=== PATIENT | male | born 1970 | race Two or more races ===

== ENCOUNTER 2019-08-18 19:00 | Emergency (ER) | payer BC ==
[2019-08-18 19:06] VITALS: BP 138/84; PULSE 88; TEMP 99.7; BMI 25.1
[2019-08-18] MEDS ORDERED: HYDROmorphone HCL CARPU-JECT 1 MG/1 ML DISP.SYRIN IM ONE (21:20)
[2019-08-18] MEDS ORDERED: HYDROmorphone HCL CARPU-JECT 1 MG/1 ML DISP.SYRIN ONE (21:35)
--- NOTE | 2019-08-19 01:15 | PDOC ---
Documentation entered by Maral Flood SCRIBE, acting as scribe for Felecia Gutierrez MD. Felecia Gutierrez MD: This documentation has been prepared by the Remigio contreras Mackenzie, SCRIBE, under my direction and personally reviewed by me in its entirety. I confirm that the documentation accurately reflects all work , treatment, procedures, and medical decision making performed by me. History of Present Illness - General Chief Complaint: Pain, Acute Stated Complaint: right ankle/foot pain History Source: Patient Exam Limitations: No Limitations - History of Present Illness Initial Comments: The patient is a 48 year old male, with a significant PMH of anxiety who presents to the emergency department after rolling his right ankle. Pt states he was at work approximately 5 hours ago when he rolled his right ankle and heard a pop. Pt notes icing the ankle for an hour [employer] and came in today because it is still swollen and he cannot bear any weight on it. The patient denies chest pain, shortness of breath, headache and dizziness. Denies fever, chills, vomiting, diarrhea and constipation. Denies dysuria, frequency, urgency and hematuria. Allergies: Succinylcholine Past surgical history: Neck surgery where pins were placed (not specified) PCP: Dr. Piña 08/18/19 20:47 Past History - Past Medical History Allergies/Adverse Reactions: Allergies Allergy/AdvReac Type Severity Reaction Status Date / Time succinylcholine Allergy Verified 08/18/19 19:05 Home Medications: Ambulatory Orders Oxycodone HCl 10 mg PO PRN 06/25/14 Clonazepam [Klonopin] 1 mg PO ASDIR 08/18/19 COPD: No Other medical history: neck and back pain - Psycho Social/Smoking Cessation Hx Smoking History: Never smoked Have you smoked in the past 12 months: No Hx Alcohol Use: No Drug/Substance Use Hx: No Review of Systems - Review of Systems Able to Perform ROS?: Yes Comments:: GENERAL/CONSTITUTIONAL: No fever or chills. No weakness. HEAD, EYES, EARS, NOSE AND THROAT: No change in vision. No ear pain or discharge. No sore throat. CARDIOVASCULAR: No chest pain or shortness of breath. RESPIRATORY: No cough, wheezing, or hemoptysis. GASTROINTESTINAL: (+)Nausea. No vomiting, diarrhea or constipation. GENITOURINARY: No dysuria, frequency, or change in urination. MUSCULOSKELETAL:(+)Swelling and pain of right ankle. No back pain. SKIN: No rash NEUROLOGIC: No headache, vertigo, loss of consciousness, or change in strength/ sensation. ENDOCRINE: No increased thirst. No abnormal weight change. HEMATOLOGIC/LYMPHATIC: No anemia, easy bleeding, or history of blood clots. ALLERGIC/IMMUNOLOGIC: No hives or skin allergy. 08/18/19 20:48 *Physical Exam - Vital Signs Last Vital Signs Temp Pulse Resp BP Pulse Ox 99.7 F H 88 19 138/84 100 08/18/19 19:00 08/18/19 19:00 08/18/19 19:00 08/18/19 19:00 08/18/19 19:00 - Physical Exam GENERAL: Awake, alert, and fully oriented, in no acute distress HEAD: No signs of trauma EYES: PERRLA, EOMI, sclera anicteric, conjunctiva clear ENT: Auricles normal inspection, hearing grossly normal, nares patent, oropharynx clear without exudates. Moist mucosa NECK: Normal ROM, supple, no lymphadenopathy, JVD, or masses LUNGS: Breath sounds equal, clear to auscultation bilaterally. No wheezes, and no crackles HEART: Regular rate and rhythm, normal S1 and S2, no murmurs, rubs or gallops ABDOMEN: Soft, nontender, normoactive bowel sounds. No guarding, no rebound. No masses EXTREMITIES: (+)RLE marked edema. (+)Faint ecchymosis of lateral malleolus of R ankle, markedly tender without deformity, no ligamentous instability. (+)Mild tenderness of R midfoot no edema, no deformity no ecchymosis. (+)RLE pulses and motor and sensory functioning intact. No clubbing or cyanosis. No cords, or erythema. NEUROLOGICAL: Cranial nerves II through XII grossly intact. Normal speech. SKIN: Warm, Dry, normal turgor, no rashes or lesions noted. 08/18/19 20:48 Medical Decision Making - Medical Decision Making As noted above, this 48-year-old man with a history of anxiety and chronic spinal pain presents with right ankle inversion injury sustained earlier today. Patient had no loss of consciousness or other injury at that time. Exam as noted. Right ankle/foot x-rays performed: Preliminary interpretation by me-avulsion fracture of the distal fibula with soft tissue swelling. No other fracture or dislocation seen. Results discussed with the patient. Posterior leg splint applied: Splint fashioned from Ortho-Glass material placed on the right lower leg and secured with José Miguel wraps. Distal neurovascular functioning intact after placement of the splint. Patient instructed to elevate his right leg as much as possible over the next few days. He can continue to place ice in the lateral aspect of the right ankle. He should use crutches for ambulation. Patient does not have an orthopedist and was given Dr. Enoc wolf for follow-up. (Patient states that he will likely not follow-up with orthopedics. It was emphasized to the patient that he must follow-up for reevaluation of his fracture to assure that it is healing well. The patient states that he would likely follow-up with his PMD, ) Patient takes chronic pain medication for his spine pain. He asked for 1 dose of parenteral narcotic pain medication here in the emergency room so that he will not need to take his oral analgesics tonight (states that he has been having some GI upset secondary to overuse of oral analgesics over the last several hours). He states that he will resume his usual daily chronic pain medication tomorrow; he does not need prescription for any new medication to treat the pain he has from his right ankle injury. Patient will be driven home by a friend who is in the ER now. Dilaudid 1 mg IM administered Discharge - Discharge Information Problems reviewed: Yes Clinical Impression/Diagnosis: Closed avulsion fracture of right ankle Qualifiers: Encounter type: initial encounter Qualified Code(s): S82.891A - Other fracture of right lower leg, initial encounter for closed fracture Condition: Stable Disposition: HOME - Follow up/Referral Referrals: Patricio Stubbs MD [Staff Physician] - - Patient Discharge Instructions Patient Printed Discharge Instructions: DI for Avulsion Fracture Additional Instructions: keep splint in place/elevate right leg as much as possible for the next 2 days crutches for ambulation continue medications as prescribed followup with orthopedist(Dr Enoc wolf) within 2-[address] Piña within 1 week return to ER if pain in ankle worsens or you develop numbness in foot - Post Discharge Activity
== END 2019-08-18 21:43 | disposition home or self-care (01) ==
LOC: FER 19:00
PROC: 2W3QX1Z Immobilization of Right Lower Leg using Splint (ICD-10-PCS; principal; 2019-08-18)
DX: S82.891A Other fracture of right lower leg, initial encounter for closed fracture (principal); X50.0XXA Overexertion from strenuous movement or load, initial encounter; Y93.9 Activity, unspecified; Y92.89 Other specified places as the place of occurrence of the external cause; F41.9 Anxiety disorder, unspecified; Z88.8 Allergy status to other drugs, medicaments and biological substances
CPT/HCPCS: 73610-TC-RT-FY; 73630-TC-RT-FY; 99281-25